=== PATIENT | male | born 1950 | race Hispanic/Latino ===

== ENCOUNTER 2017-09-15 08:47 | Emergency (ER) | payer BC ==
[2017-09-15] MEDS ORDERED: Fentanyl 100 MCG/2 ML VIAL ONE (09:30)
[2017-09-15 09:41] LABS: #Eosinphils 0.2 thou/uL (0.0-0.7); #Lymphocytes 0.6 thou/uL (1.20-3.40); #Monocytes 0.4 thou/uL (0.11-0.59); #Neutrophils 3.7 thou/uL (1.40-6.50); %Basophils 0.8 % (0.0-1.0); %Eosinophils 4.2 % (0.0-10.0); %Lymphocytes 12.3 % (21.0-51.0); %Monocytes 7.1 % (0.0-10.0); %Neutrophils 75.6 % (42.0-75.0); Hemoglobin 15.8 g/dL (14.0-18.0); Mean Corpuscular Hemoglobin 33.8 pg (27.0-31.0); Mean Corpuscular Volume 99.3 fl (80.0-94.0); Mean Platelet Volume 8.9 fL (7.4-10.4); Platelet Count 169 thou/uL (130-400); RBC Distribution Width 11.8 % (11.5-14.5); Red Blood Cell (RBC) Count 4.69 mill/uL (4.70-6.10); White Blood Cell (WBC) Count 4.9 thou/uL (4.8-10.8)
--- NOTE | 2017-09-15 10:09 | CT ---
CT ABDOMEN AND PELVIS: 09/15/2017 HISTORY: Bilateral testicular pain. Abdominal pain. COMPARISON: None available. TECHNIQUE: Serial axial CT imaging at 5 mm intervals, from the lung bases through the pubic symphysis, without c ontrast. Coronal reformatted imaging obtained. FINDINGS: Mechanical aortic valve noted. Midline sternotomy wires present. Lack of contrast limits assessment of the viscera, bowel, and vascular structures, and for lymphadeno kelsey. There is a granuloma in the left lower lobe. Calcified lymph nodes are noted in the left hilum. There is no free intraperitoneal air or fluid. There are dystrophic calcifications within the prosta te gland. There are granulomata within the spleen. The liver, gallbladder, pancreas, adrenal glands, and kidneys demonstrate no acute findings. A vague hypodense area in the upper pole of the left kidney, on image 28, measures 6-7 mm, [id number] acterize. Probable punctate, nonobstructing stone noted within the mid pole of the left kidney, on a xial image 39. There is no evidence for obstructive uropathy or ureteral calcification on either side. There are scattered diverticula noted within the descending colon and sigmoid colon, with no evidence for diverticulitis. The appendix is within normal limits. There is no evidence for bowel obstructi on. There is a small sliding type hiatal hernia present. Multilevel lower lumbar spine facet hypert rophic changes are noted. There is multilevel disk space narrowing and degenerative endplate change with osteophyte formation. IMPRESSION: Punctate, nonobstructing stone, mid pole, left kidney. No evidence for obstructive uropathy. POS: [facility]
--- NOTE | 2017-09-15 10:26 | ULT ---
ULTRASOUND TESTICULAR BILATERAL: Date: 09/15/17 HISTORY: Bilateral pain. COMPARISON: None. FINDINGS: Real-time Alan scale with color Doppler and spectral analysis of the testicles performed with a linea r transducer. Right testicle measures 4.1 x 2.5 x 3.1 cm. Left testicle measures 3.9 x 3.0 x 2.8 cm. Both epididymi nuha are normal. There is hypervascularity of both testicles. No abnormal mass. Moderate size left varicocele. IMPRESSION: 1. Moderate bilateral hypervascularity suggestive for orchitis. 2. Moderate left varicocele. POS: [facility]
[2017-09-15 10:57] LABS: Albumin 3.8 g/dL (3.4-4.8)
[2017-09-15 10:58] LABS: Chloride 104 mmol/L (98-107); Potassium 3.7 mmol/L (3.5-5.1); Sodium 135 mmol/L (136-145)
[2017-09-15 10:59] LABS: Calcium 8.8 mg/dL (7.8-10.44)
[2017-09-15 11:00] LABS: Globulin 2.8 g/dL (2.4-3.5); Glucose 103 mg/dL (80-115); Protein, Total 6.6 g/dL (5.8-8.1)
[2017-09-15 11:01] LABS: Anion Gap 11 mmol/L (10-20); Bilirubin, Total 1.5 mg/dL (0.2-1.2); Carbon Dioxide 24 mmol/L (23-31)
[2017-09-15 11:02] LABS: Alkaline Phosphatase 87 U/L (40-150)
[2017-09-15 11:03] LABS: Calc. Creatinine Clearance 0 mL/min (70-130); Estimated GFR-MDRD Greater than 90
[2017-09-15 11:04] LABS: BUN (Urea Nitrogen) 8 mg/dL (8.4-25.7)
[2017-09-15 11:05] LABS: AST (SGOT) 68 U/L (5-34)
[2017-09-15 11:06] LABS: ALT (SGPT) 80 U/L (8-55); Lipase 28 U/L (8-78)
[2017-09-15] MEDS ORDERED: LIDOCAINE 1% IM SCH (12:15)
[2017-09-15] MEDS ORDERED: STERILE WATER SLOW IVP SCH ×2 (12:15→12:30)
[2017-09-15] MEDS ORDERED: cefTRIAXone\\ROCEPHIN 1 GM VIAL IM SCH (12:15)
[2017-09-15] MEDS ORDERED: CEFTRIAXONE ROCEPHIN SLOW IVP SCH ×2 (12:15→12:30)
[2017-09-15] MEDS ORDERED: CEFTRIAXONE ROCEPHIN IM SCH (12:15)
[2017-09-15] MEDS ORDERED: Lidocaine 1% PF 5 ML VIAL FS SCH (12:15)
[2017-09-15 12:35] LABS: Bilirubin Negative (Negative); Blood, Urine Negative (Negative); Clarity CLEAR (Clear); Glucose, Urine (Dipstick) Negative (Negative); Leukocyte Negative (Negative); Nitrite Negative (Negative); Protein, Urine (Dipstick) Negative (Neg-Trace); Specific Gravity, Urine 1.012 (1.002-1.036); Urobilinogen 0.2 mg/dL (0.2-1.0)
[2017-09-15] MEDS ORDERED: Ibuprofen 200 MG TAB ONE (12:52)
[2017-09-15] MEDS ORDERED: Lidocaine 1% PF 5 ML VIAL ONE (12:57)
[2017-09-15] MEDS ORDERED: cefTRIAXone\\ROCEPHIN 250 MG VIAL ONE (12:57)
[2017-09-21 18:22] LABS: Chlamydia by PCR Not Detected (NotDetected); GC by PCR Not Detected (NotDetected)
== END 2017-09-15 13:26 | disposition home or self-care (01) ==
LOC: ERS 08:47
DX: N45.2 Orchitis (principal); Z79.01 Long term (current) use of anticoagulants; Z79.899 Other long term (current) drug therapy
CPT/HCPCS: 36415; 74176; 76870; 80053; 81003; 83690; 85025; 87491; 87591; 93976; 96374; 96375; A4216; J0696; J2001; J3010

== ENCOUNTER 2019-12-20 09:42 | Observation (INO) | payer BC ==
[~2019-12-20 09:42] MED LIST: Iopamidol-370 76% 500 ML 1 ML ONE
--- NOTE | 2019-12-20 10:00 | CT ---
EXAM: CT brain without contrast HISTORY: Right facial drooping and blurry vision in the right eye COMPARISON: None TECHNIQUE: Multiple contiguous axial images were obtained and a CT of the brain without contrast. FINDINGS: The brain is normal in morphology and attenuation without focal lesions or confluent areas of infarction. There is no evidence of hydrocephalus, intracranial hemorrhage, or extra-axial fluid collection. The calvarium and overlying soft tissues are unremarkable. The visualized paranasal sinuses and masto id air cells are well aerated. IMPRESSION: No evidence of acute intracranial abnormality Dr. Dejesus notified of findings at 9:57 AM on 12/20/2019
[2019-12-20 10:03] LABS: #Eosinphils 0.2 thou/uL (0.0-0.7); #Lymphocytes 1.3 thou/uL (1.20-3.40); #Monocytes 0.4 thou/uL (0.11-0.59); #Neutrophils 2.9 thou/uL (1.40-6.50); %Basophils 0.9 % (0.0-1.0); %Eosinophils 3.9 % (0.0-10.0); %Lymphocytes 25.9 % (21.0-51.0); %Neutrophils 60.3 % (42.0-75.0); Hemoglobin 16.7 g/dL (14.0-18.0); Mean Corpuscular HGB CONC 34.6 g/dL (32.0-36.0); Mean Corpuscular Hemoglobin 33.6 pg (27.0-31.0); Mean Corpuscular Volume 97.2 fL (78.0-98.0); Platelet Count 215 thou/uL (130-400); RBC Distribution Width 11.3 % (11.5-14.5); Red Blood Cell (RBC) Count 4.97 mill/uL (4.70-6.10); White Blood Cell (WBC) Count 4.9 thou/uL (4.8-10.8)
[2019-12-20 10:12] LABS: INR-International Normal Ratio 2.4; PTT 38.3 sec (22.9-36.1); Prothrombin Time 25.9 sec (12.0-14.7)
--- NOTE | 2019-12-20 10:23 | CT ---
EXAM: CT ANGIOGRAM OF THE HEAD AND NECK INDICATION: Last seen normal yesterday at 1400 hours. Blurred vision in the right eye. Right-sided weakness. Faci al droop. COMPARISON: None. TECHNIQUE: CT angiogram of the head and neck are performed in the axial plane. Three-dimensional reformatted celina ges are submitted for interpretation. FINDINGS: CTA OF THE HEAD WITH AND WITHOUT CONTRAST: POSTCONTRAST CT OF BRAIN: Pathologic enhancement: No pathologic enhancement the brain. POSTCONTRAST SOFT TISSUE NECK CT: Aerodigestive tract:Aerodigestive tract is patent. No mucosal abnormality. Sinuses: Adequate aeration. Orbits: Bilateral ocular lenses are appropriately located. Both globes are intact. Retrobulbar fat is preserved. Symmetric attenuation the optic nerves and ocular rectus muscles. Salivary glands:Appropriate attenuation Thyroid gland: Hypodensity in the right thyroid lobe, incompletely evaluated measuring 0.8 cm. Lymph nodes: No evidence of lymphadenopathy by size criteria. Paraspinal muscles: Symmetric attenuation of the sternocleidomastoid muscles. Appropriate attenuation of the paraspinal muscles. Cervical spine:Vertebral body height is maintained. No fracture. There are varying degrees of central canal stenosis or significant neural foraminal narrowing due to degenerative change. Limited evaluation by technique. Upper mediastinum and lung apices: Chronic changes in the visualized lung parenchyma. No acute abnorm ality. CTA OF THE NECK WITH CONTRAST: Aorta: Minimal atherosclerosis of the aorta. Right carotid artery: Appropriate enhancement and luminal diameter of the origin of the common caroti d artery, innominate artery, common carotid artery, carotid bifurcation and internal carotid artery. Minimal atherosclerosis of the carotid bifurcation and proximal internal carotid artery. No s ignificant stenosis based upon NASCET criteria. Left carotid: Appropriate enhancement and luminal diameter of the origin of the common carotid artery , common carotid artery, carotid bifurcation and internal carotid artery. Small amount of calcified and noncalcified plaque in the carotid bifurcation and proximal internal carotid artery. No significa nt stenosis based upon NASCET criteria. Subclavian arteries:Mild narrowing involving the origin and proximal subclavian artery due to noncalc ified plaque. Vertebral arteries:Dominant left vertebral artery. No significant stenosis of either cervical vertebr al artery. CTA OF THE BRAIN: Intracranial internal carotid arteries:Minimal atherosclerosis in both cavernous and paraclinoid segm ents. Anterior circulation: Appropriate enhancement and luminal diameter of the A1 and proximal A2 segments . Appropriate enhancement and luminal diameter of the M1 segments and proximal MCA branches. Intracranial vertebral arteries: Patent. Bilateral PICA artery origins have appropriate enhancement a nd luminal diameter. Posterior circulation: Appropriate enhancement and luminal diameter of the basilar artery and bilater al P1 segments. IMPRESSION: 1. No hemodynamically significant stenosis, occlusion or aneurysmal formation. 2. Results study discussed with Dr. Dejesus 12/20/2019 at 10:22 AM. Code CR Transcribed Date/Time: 12/20/2019 10:39 AM
[2019-12-20 10:28] LABS: ALT (SGPT) 22 U/L (8-55); AST (SGOT) 26 U/L (5-34); Albumin 4.2 g/dL (3.4-4.8); Alkaline Phosphatase 98 U/L (40-110); Anion Gap 12 mmol/L (10-20); BUN (Urea Nitrogen) 14 mg/dL (8.4-25.7); Bilirubin, Total 0.8 mg/dL (0.2-1.2); Calc. Creatinine Clearance 0 mL/min (70-130); Calcium 9.2 mg/dL (7.8-10.44); Carbon Dioxide 25 mmol/L (23-31); Chloride 107 mmol/L (98-107); Estimated GFR-MDRD Greater than 90; Globulin 2.9 g/dL (2.4-3.5); Glucose 112 mg/dL (80-115); Potassium 4.2 mmol/L (3.5-5.1); Protein, Total 7.1 g/dL (5.8-8.1); Sodium 140 mmol/L (136-145)
[2019-12-20 10:50] LABS: CKMB 2.1 ng/mL (0-6.6)
[2019-12-20] MEDS ORDERED: Aspirin Chewable 81 MG TAB ONE (11:20)
[2019-12-20] MEDS ORDERED: Senokot S 8.6-50 MG TAB PO PRN (12:04)
[2019-12-20] MEDS ORDERED: Sodium Chloride 0.9% 1,000 ML IV SCH (12:15)
--- NOTE | 2019-12-20 12:50 | MRI ---
Exam: Brain MRI without contrast HISTORY: Evaluate for CVA. Right facial droop. Blurred vision. COMPARISON: None FINDINGS: Calvarial marrow signal intensity: Appropriate T1 signal Gradient echo sequence: No hemorrhage Brain parenchyma: No mass, mass effect or midline shift. Brain volume, age-appropriate. Cortical daigle-white matter differentiation: Preserved Restricted diffusion: Central arterial flow voids are maintained. Absent restricted diffusion White matter signal intensities:Scattered T2, FLAIR white matter hyperintensities due to chronic smal l vessel ischemic changes Sinuses: Adequate aeration of the paranasal sinuses and mastoid air cells. IMPRESSION: 1. Absent restricted diffusion. No acute infarct.
--- NOTE | 2019-12-20 13:34 | PDOC.HHP ---
Hospitalist HPI - History of Present Illness right sided facial droop with some dysarthria History of Present Illness: 69M came to the ED today to have a right sided facial droop and slurred speech evaluation. States it started yesterday around 2pm and has not gotten any better so he thought he should see someone about it. NIH = 3 in the ED for droop and dysarthria. CT and CTA of the brain without acute findings. Has a PMH pertinent for a mechanical heart valve, replaced 9 years ago, and HTN. ED Course: CTA, CT and MRI brain without any evidence of acute findings. Chem panel unremarkable, troponin x1 is in the indeterminate range. INR = 2.4. Will be admitted to stroke unit for further management. Hospitalist ROS - Review of Systems Constitutional: denies: fever, chills, sweats, weakness, malaise, other Eyes: denies: pain, vision change, conjunctivae inflammation, eyelid inflammation, redness, other ENT: reports: other (right side of mouth feels heavy, tingling on the right side of his tongue.) Respiratory: denies: cough, dry, shortness of breath, hemoptysis, SOB with excertion, pleuritic pain, sputum, wheezing, other Cardiovascular: denies: chest pain, palpitations, orthopnea, paroxysmal noc. dyspnea, edema, light headedness, other Gastrointestinal: denies: nausea, vomiting, abdominal pain, diarrhea, constipation, melena, hematochezia, other Genitourinary: denies: dysuria, frequency, incontinence, hematuria, retention, other Musculoskeletal: denies: neck pain, shoulder pain, arm pain, back pain, hand pain, leg pain, foot pain, other Skin: denies: rash, lesions, luis fernando, bruising, other Neurological: reports: change in speech Hospitalist History - Past Medical History Cardiac: reports: HTN, Aortic stenosis, Valve insufficiency Pulmonary: denies: no pertinent history, angina, asthma, bronchitis, CVA/TIA/ stroke, congestive heart failure, COPD, deep vein thrombosis, emphysema, heart attack, high cholesterol, HIV/AIDS, lung disease, pneumonia, previously intubated, pulmonary embolism, Other TRAVEL ACCOMMODATIONS RATER: denies: no pertinent history, Carpal Tunnel Syndrome, CVA, Dementia, Migraine, Peripheral neuropathy, Seizure, TIA, Vertigo, Other Gastrointestinal: denies: no pertinent history, Constipation, Diverticulosis, GERD, GI bleed, Gastritis, Hemorrhoids, Inflam bowel disease, Irritable bowel disease, Peptic ulcer disease, Other Heme/Onc: denies: no pertinent history, Anemia NOS, B12 deficiency, Cancer, Hemochromatosis, Iron deficiency anemia, Sickle cell disease, Sickle cell trait , Other Hepatobiliary: denies: no pertinent history, Cirrhosis, Cholelithiasis, Hep A/B/ C, Other Renal/: denies: no pertinent history, Chronic renal insuff, Acute renal failure, Chronic renal failure, UTI, Benign prostatic enlarg., Hematuria, Other Endocrine: denies: no pertinent history, Diabetes, Hyperthyroidism, Hypothyroidism, Hyperparathyroidism, Osteopenia, Osteoporosis, Other - Past Surgical History Past Surgical History: reports: Other (Aortic valve replaced 8-9 years ago) - Family History Family History: reports: hypertension - Social History Smoking Status: Never smoker Alcohol: reports: Occassional Drugs: reports: none Living Situation: With Family Activity level: independent ambulation - Exam Eye: PERRL ENT: moist mucosa ENT - other findings: right sided facial droop, can raise eyebrows Neck: supple, no JVD Heart: RRR, no rubs Respiratory: CTAB, normal chest expansion Gastrointestinal: soft, non-tender, normal bowel sounds Extremities: no edema Skin: normal turgor Neurological: normal sensation to touch, facial droop, speech deficit Musculoskeletal: normal tone, normal strength Psychiatric: normal affect, A&O x 3 Hospitalist Results - Labs Result Diagrams: 12/20/19 09:54 12/20/19 09:54 Lab results: WBC 4.9 thou/uL (4.8-10.8) 12/20/19 09:54 Hgb 16.7 g/dL (14.0-18.0) 12/20/19 09:54 Hct 48.2 % (42.0-52.0) 12/20/19 09:54 MCV 97.2 fL (78.0-98.0) 12/20/19 09:54 Plt Count 215 thou/uL (130-400) 12/20/19 09:54 Neutrophils % 60.3 % (42.0-75.0) 12/20/19 09:54 Sodium 140 mmol/L (136-145) 12/20/19 09:54 Potassium 4.2 mmol/L (3.5-5.1) 12/20/19 09:54 Chloride 107 mmol/L (98-107) 12/20/19 09:54 Carbon Dioxide 25 mmol/L (23-31) 12/20/19 09:54 BUN 14 mg/dL (8.4-25.7) 12/20/19 09:54 Creatinine 0.84 mg/dL (0.7-1.3) 12/20/19 09:54 Glucose 112 mg/dL (80-115) 12/20/19 09:54 Calcium 9.2 mg/dL (7.8-10.44) 12/20/19 09:54 Total Bilirubin 0.8 mg/dL (0.2-1.2) 12/20/19 09:54 AST 26 U/L (5-34) 12/20/19 09:54 ALT 22 U/L (8-55) 12/20/19 09:54 Alkaline Phosphatase 98 U/L (40-110) 12/20/19 09:54 CK-MB (CK-2) 2.1 ng/mL (0-6.6) 12/20/19 09:54 Troponin I 0.047 ng/mL (< 0.028) H 12/20/19 09:54 Serum Total Protein 7.1 g/dL (5.8-8.1) 12/20/19 09:54 Albumin 4.2 g/dL (3.4-4.8) 12/20/19 09:54 - EKG Interpretation EKG: Sinus bradycardia, bpm 53, 1st degree AV block, no other changes noted Hospitalist H&P A/P - Problem (1) Facial paralysis on right side Code(s): G51.0 - ANDERSEN'S PALSY Status: Acute (2) Dysarthria Code(s): R47.1 - DYSARTHRIA AND ANARTHRIA Status: Acute (3) Heart valve replaced Code(s): Z95.2 - PRESENCE OF PROSTHETIC HEART VALVE Status: Chronic (4) Hypertension Code(s): I10 - ESSENTIAL (PRIMARY) HYPERTENSION Status: Chronic - Plan Plan: #Facial Droop Echo, PT/OT/Speech eval Neurology consult MRI done today Neuro checks q4 ASA, will check lipids #HTN Will monitor and restart home medications #DVT prevention with SCDs, patient is on coumadin PUD prevention with protonix Check labs in AM Case discussed with Dr. Rice who agrees to plan
[2019-12-20 13:47] LABS: Troponin I 0.019 ng/mL (< 0.028)
--- NOTE | 2019-12-20 15:23 | CON ---
NEUROLOGY CONSULTATION DATE OF CONSULTATION: 12/20/2019 REASON FOR CONSULTATION: Right-sided facial droop with dysarthria. HISTORY OF PRESENT ILLNESS: Mr. Nilo Carver is a 69-year-old male with medical history significant for hypertension, aortic stenosis, asthma, and presented to the emergency room with right-sided facial droop and dysarthria which started yesterday around 2 p.m. and has not got better. He also reports some weakness in the right upper extremity. When he came to the emergency room, the NIH stroke scale was 3. CT head was done, which was negative for acute intracranial pathology. CT angiogram was also unremarkable for hemodynamically significant stenosis. MRI of the brain was done, which did not reveal any acute intracranial process. He was admitted for further evaluation. he patient denies any focal paresthesias, nausea, vomiting, headache, chest pain, palpitation, dizziness, vertigo, loss of vision or loss of consciousness associated with the episode. Reported dysarthria. REVIEW OF SYSTEMS: All other systems were reviewed and were negative except pertinent positives and negatives mentioned in the HPI. PAST MEDICAL HISTORY: Significant for hypertension, aortic stenosis, valvular insufficiency. PAST SURGICAL HISTORY: Aortic valve replacement 8 to 9 years ago. FAMILY HISTORY: Significant for hypertension. SOCIAL HISTORY: The patient is , lives with his . Denies smoking, alcohol, illegal drug use. ALLERGIES: Hydrocodone - Physical Exam 130/70 54 16 Eye: PERRL ENT: moist mucosa ENT - other findings: right sided facial droop, can raise eyebrows Neck: supple, no JVD Heart: RRR, no rubs Respiratory: CTAB, normal chest expansion Gastrointestinal: soft, non-tender, normal bowel sounds Extremities: no edema Skin: normal turgor Neurological: Mental status: The patient is alert and oriented to person, place, and time. Speech is slurred. Recent and remote memory intact. Fund of knowledge is appropriate. Cranial nerves 2 through 12 intact except 7, right facial droop. Motor: Muscle tone and bulk are normal. Moving all 4 extremities equally and symmetrically. Sensory intact. Cerebellar: Finger-nose testing intact. Gait deferred due to patient's safety reasons. 12/20/19 09:54 Lab results: WBC 4.9 thou/uL (4.8-10.8) 12/20/19 09:54 Hgb 16.7 g/dL (14.0-18.0) 12/20/19 09:54 Hct 48.2 % (42.0-52.0) 12/20/19 09:54 MCV 97.2 fL (78.0-98.0) 12/20/19 09:54 Plt Count 215 thou/uL (130-400) 12/20/19 09:54 Neutrophils % 60.3 % (42.0-75.0) 12/20/19 09:54 Sodium 140 mmol/L (136-145) 12/20/19 09:54 Potassium 4.2 mmol/L (3.5-5.1) 12/20/19 09:54 Chloride 107 mmol/L (98-107) 12/20/19 09:54 Carbon Dioxide 25 mmol/L (23-31) 12/20/19 09:54 BUN 14 mg/dL (8.4-25.7) 12/20/19 09:54 Creatinine 0.84 mg/dL (0.7-1.3) 12/20/19 09:54 Glucose 112 mg/dL (80-115) 12/20/19 09:54 Calcium 9.2 mg/dL (7.8-10.44) 12/20/19 09:54 Total Bilirubin 0.8 mg/dL (0.2-1.2) 12/20/19 09:54 AST 26 U/L (5-34) 12/20/19 09:54 ALT 22 U/L (8-55) 12/20/19 09:54 Alkaline Phosphatase 98 U/L (40-110) 12/20/19 09:54 CK-MB (CK-2) 2.1 ng/mL (0-6.6) 12/20/19 09:54 Troponin I 0.047 ng/mL (< 0.028) H 12/20/19 09:54 Serum Total Protein 7.1 g/dL (5.8-8.1) 12/20/19 09:54 Albumin 4.2 g/dL (3.4-4.8) 12/20/19 09:54 - EKG Interpretation EKG: Sinus bradycardia, bpm 53, 1st degree AV block, no other changes noted DATA REVIEWED: I reviewed the labs which were essentially unremarkable. EKG showed sinus bradycardia with heart rate of 53 and first-degree heart block. Head CT did not reveal any acute intracranial pathology. MRI brain without any evidence of acute findings. Chem panel unremarkable ASSESSMENT AND PLAN: Mr. Nilo Carver is admitted for evaluation of acute onset right facial droop with slurred speech. He does report some mild weakness of the right upper and lower extremities but not much evident on exam.. MRI of the brain reviewed which was negative for acute intracranial process. CT angiogram did not reveal hemodynamically significant stenosis. Concern TIA versus facial palsy . Permissive blood pressure control at this time. Telemetry. Consider increasing aspirin dose to 324 mg daily. Check a fasting lipid panel. Continue aspirin and statin for secondary stroke prevention. The patient is on Coumadin for prosthetic heart valve. PT/OT/Speech. Continue medical management per primary team. We will continue to follow. Thank you for the consult. Job ID: [id number] MTDD
[2019-12-20 15:37] VITALS: BMI 27.7
[2019-12-20 17:55] LABS: Troponin I 0.011 ng/mL (< 0.028)
[2019-12-20] MEDS: Carvedilol 6.25 MG TAB PO SCH (17:55)
[2019-12-20] MEDS ORDERED: Warfarin Sodium 5 MG TAB PO SCH (18:15)
[2019-12-20] MEDS ORDERED: Lisinopril 10 MG TAB PO SCH (21:00)
[2019-12-20] MEDS ORDERED: Carvedilol 6.25 MG TAB PO SCH (21:00)
[2019-12-20] MEDS: Famotidine 20 MG TAB PO SCH (21:09)
[2019-12-20] MEDS: Lisinopril 5 MG TAB PO SCH (21:09)
[2019-12-20] MEDS: Acetaminophen 325 MG TAB PO PRN (23:37)
[2019-12-21 05:23] LABS: #Basophils 0.1 thou/uL (0.0-0.2); #Eosinphils 0.2 thou/uL (0.0-0.7); #Lymphocytes 1.3 thou/uL (1.20-3.40); #Monocytes 0.4 thou/uL (0.11-0.59); #Neutrophils 2.2 thou/uL (1.40-6.50); %Basophils 1.8 % (0.0-1.0); %Eosinophils 5.2 % (0.0-10.0); %Lymphocytes 30.2 % (21.0-51.0); %Neutrophils 52.8 % (42.0-75.0); Hemoglobin 15.3 g/dL (14.0-18.0); Mean Corpuscular HGB CONC 35.4 g/dL (32.0-36.0); Mean Corpuscular Hemoglobin 34.3 pg (27.0-31.0); Mean Corpuscular Volume 96.8 fL (78.0-98.0); Mean Platelet Volume 9.3 fL (7.4-10.4); Platelet Count 192 thou/uL (130-400); RBC Distribution Width 11.3 % (11.5-14.5); Red Blood Cell (RBC) Count 4.47 mill/uL (4.70-6.10); White Blood Cell (WBC) Count 4.2 thou/uL (4.8-10.8)
[2019-12-21 05:29] LABS: INR-International Normal Ratio 2.5; PTT 39.3 sec (22.9-36.1); Prothrombin Time 26.5 sec (12.0-14.7)
[2019-12-21 05:41] LABS: Anion Gap 11 mmol/L (10-20); BUN (Urea Nitrogen) 14 mg/dL (8.4-25.7); Calc. Creatinine Clearance 100 mL/min (70-130); Calcium 8.5 mg/dL (7.8-10.44); Carbon Dioxide 25 mmol/L (23-31); Cardiac Risk 5.1 (Less than 4.5); Chloride 108 mmol/L (98-107); Cholesterol 205 mg/dl (< 200 Desired); Estimated GFR-MDRD Greater than 90; Glucose 97 mg/dL (80-115); HDL Cholesterol 40 mg/dL (>60 Neg Risk); LDL Cholesterol, Calculated 119 mg/dL; Sodium 140 mmol/L (136-145); Triglycerides 232 mg/dL (Less than 150)
[2019-12-21] MEDS: Carvedilol 6.25 MG TAB PO SCH ×2 (07:48→17:29)
[2019-12-21] MEDS: Lisinopril 5 MG TAB PO SCH (08:28)
[2019-12-21] MEDS: Acetaminophen 325 MG TAB PO PRN (08:36)
[2019-12-21] MEDS ORDERED: Aspirin 325 mg Enteric Coated Tablet PO SCH (09:00)
[2019-12-21] MEDS ORDERED: Prevnar 13-Val Conj/PF 0.5 ML SYRINGE IM ONE (09:00)
[2019-12-21] MEDS ORDERED: Aspirin 81 mg Enteric Coated Tablet PO SCH (09:45)
--- NOTE | 2019-12-21 11:16 | PDOC.HOSPP ---
- Subjective Encounter Date: 12/21/19 Subjective: NEUROLOGY PROGRESS NOTE Patient awake , alert and follows commands appropriately. He continues to have right facial droop. MRI brain negative. - Objective Vital Signs & Weight: Vital Signs (12 hours) Temp Pulse Resp BP Pulse Ox 12/21/19 08:00 98.5 F 47 L 16 139/74 97 12/21/19 04:00 97.5 F L 47 L 14 141/67 H 98 12/21/19 00:00 97.9 F 48 L 16 170/79 H 95 Weight Weight 177 lb I&O: 12/20/19 12/21/19 12/22/19 06:59 06:59 06:59 Intake Total 1789 240 Balance 1789 240 Result Diagrams: 12/21/19 04:29 12/21/19 04:29 Radiology Reviewed by me: Yes EKG Reviewed by me: Yes Hospitalist ROS - Review of Systems Constitutional: denies: fever, chills, sweats, weakness, malaise, other Eyes: denies: pain, vision change, conjunctivae inflammation, eyelid inflammation, redness, other ENT: denies: ear pain, ear discharge, nose pain, nose discharge, nose congestion , mouth pain, mouth swelling, throat pain, throat swelling, other Respiratory: denies: cough, dry, shortness of breath, hemoptysis, SOB with excertion, pleuritic pain, sputum, wheezing, other Cardiovascular: denies: chest pain, palpitations, orthopnea, paroxysmal noc. dyspnea, edema, light headedness, other Gastrointestinal: denies: nausea, vomiting, abdominal pain, diarrhea, constipation, melena, hematochezia, other Genitourinary: denies: dysuria, frequency, incontinence, hematuria, retention, other Musculoskeletal: denies: neck pain, shoulder pain, arm pain, back pain, hand pain, leg pain, foot pain, other Skin: denies: rash, lesions, luis fernando, bruising, other Neurological: reports: weakness. denies: numbness, incoordination, change in speech, confusion, seizures, other Other: right facial weakness - Medication Medications: Active Medications Generic Name Dose Route Start Last Admin Trade Name Freq PRN Reason Stop Dose Admin Acetaminophen 650 mg 12/20/19 12:04 12/21/19 08:36 Tylenol PO 650 mg Q4H PRN Administration Headache/Fever/Mild Pain (1-3) Carvedilol 6.25 mg 12/20/19 17:00 12/21/19 07:48 Coreg PO Not Given BID-WM HARPER Famotidine 20 mg 12/20/19 21:00 12/20/19 21:09 Pepcid PO 20 mg BID HARPER Administration Lisinopril 5 mg 12/20/19 21:00 12/21/19 08:28 Zestril PO 5 mg BID HARPER Administration Sodium Chloride 10 ml 12/20/19 12:04 12/21/19 08:28 Flush - Normal Saline IVF 10 ml PRN PRN Administration Saline Flush - Exam General Appearance: awake alert Eye: PERRL ENT: normocephalic atraumatic Neck: supple Heart: RRR Respiratory: CTAB Gastrointestinal: soft Extremities: no cyanosis Skin: normal turgor Neurological: normal sensation to touch, no weakness, no focal deficits, no new deficit, facial droop Neurological - other findings: right facial droop and right facial weakness Musculoskeletal: normal tone, normal strength, no muscle wasting Psychiatric: normal affect, normal behavior, A&O x 3, oriented to person, oriented to place, oriented to time Hosp A/P (1) Dysarthria Code(s): R47.1 - DYSARTHRIA AND ANARTHRIA Status: Acute (2) Facial paralysis on right side Code(s): G51.0 - ANDERSEN'S PALSY Status: Acute - Plan speech therapy 69 year old with right facial droop and right facial weakness. 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 MRI brain negative for acute intracranial process. Speech eval for dysarthria. Continue home medications. Continue medical management per primary team. Plan discussed in detail with the patient and the floor team during the MDR rounds.
[2019-12-21] MEDS: Famotidine 20 MG TAB PO SCH (11:21)
--- NOTE | 2019-12-21 13:16 | CT ---
EXAM: CT ANGIOGRAM OF THE HEAD AND NECK INDICATION: Last seen normal yesterday at 1400 hours. Blurred vision in the right eye. Right-sided weakness. Faci al droop. COMPARISON: None. TECHNIQUE: CT angiogram of the head and neck are performed in the axial plane. Three-dimensional reformatted ceilna ges are submitted for interpretation. FINDINGS: CTA OF THE HEAD WITH AND WITHOUT CONTRAST: POSTCONTRAST CT OF BRAIN: Pathologic enhancement: No pathologic enhancement the brain. POSTCONTRAST SOFT TISSUE NECK CT: Aerodigestive tract:Aerodigestive tract is patent. No mucosal abnormality. Sinuses: Adequate aeration. Orbits: Bilateral ocular lenses are appropriately located. Both globes are intact. Retrobulbar fat is preserved. Symmetric attenuation the optic nerves and ocular rectus muscles. Salivary glands:Appropriate attenuation Thyroid gland: Hypodensity in the right thyroid lobe, incompletely evaluated measuring 0.8 cm. Lymph nodes: No evidence of lymphadenopathy by size criteria. Paraspinal muscles: Symmetric attenuation of the sternocleidomastoid muscles. Appropriate attenuation of the paraspinal muscles. Cervical spine:Vertebral body height is maintained. No fracture. There are varying degrees of central canal stenosis or significant neural foraminal narrowing due to degenerative change. Limited evaluation by technique. Upper mediastinum and lung apices: Chronic changes in the visualized lung parenchyma. No acute abnorm ality. CTA OF THE NECK WITH CONTRAST: Aorta: Minimal atherosclerosis of the aorta. Right carotid artery: Appropriate enhancement and luminal diameter of the origin of the common caroti d artery, innominate artery, common carotid artery, carotid bifurcation and internal carotid artery. Minimal atherosclerosis of the carotid bifurcation and proximal internal carotid artery. No s ignificant stenosis based upon NASCET criteria. Left carotid: Appropriate enhancement and luminal diameter of the origin of the common carotid artery , common carotid artery, carotid bifurcation and internal carotid artery. Small amount of calcified and noncalcified plaque in the carotid bifurcation and proximal internal carotid artery. No significa nt stenosis based upon NASCET criteria. Subclavian arteries:Mild narrowing involving the origin and proximal subclavian artery due to noncalc ified plaque. Vertebral arteries:Dominant left vertebral artery. No significant stenosis of either cervical vertebr al artery. CTA OF THE BRAIN: Intracranial internal carotid arteries:Minimal atherosclerosis in both cavernous and paraclinoid segm ents. Anterior circulation: Appropriate enhancement and luminal diameter of the A1 and proximal A2 segments . Appropriate enhancement and luminal diameter of the M1 segments and proximal MCA branches. Intracranial vertebral arteries: Patent. Bilateral PICA artery origins have appropriate enhancement a nd luminal diameter. Posterior circulation: Appropriate enhancement and luminal diameter of the basilar artery and bilater al P1 segments. IMPRESSION: 1. No hemodynamically significant stenosis, occlusion or aneurysmal formation. 2. Results study discussed with Dr. Dejesus 12/20/2019 at 10:22 AM. Code CR Transcribed Date/Time: 12/21/2019 1:16 PM
[2019-12-21 16:05] VITALS: BP 147/71; TEMP 97.5
[2019-12-21] MEDS ORDERED: Warfarin Sodium 5 MG TAB PO SCH (17:00)
[2019-12-21] MEDS ORDERED: predniSONE 20 MG TAB PO SCH (17:30)
[2019-12-21] MEDS ORDERED: valACYclovir 500 MG TAB PO SCH (17:30)
--- NOTE | 2019-12-21 19:37 | DIS ---
DATE OF ADMISSION: 12/20/2019 DATE OF DISCHARGE: 12/21/2019 DISCHARGE DISPOSITION: Home. FOLLOWUP: 1. Follow up with Dr. Hollis Cortez at [facility] in 1 week. 2. Follow up with Neurology, Dr. Frausto in 2 weeks. ALLERGIES: THE PATIENT IS ALLERGIC TO HYDROCODONE. DISCHARGE MEDICATIONS: 1. Valtrex 1 g 3 times daily for 1 week. 2. Prednisone 60 mg daily for 1 week. All other home medications were left unchanged. The patient was seen and examined on the day of discharge. Denies any new complaints. No new focal deficit. BRIEF HOSPITAL COURSE: The patient is a 69-year-old male with hypertension and mechanical aortic valve on anticoagulation, presented to the hospital with right-sided facial droop along with dysarthria. Please refer to the history and physical for further details. The patient was admitted to the hospital with a diagnosis of suspected CVA. Initial CT scan of the brain was negative for acute CVA. MRI of the brain was negative as well. Echocardiogram showed left ventricular ejection fraction 55% to 60% with probable mild diastolic dysfunction and trace tricuspid regurgitation. Left atrium was [id number] dilated. The patient was evaluated by Neurology. 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 He has been started on Valtrex along with prednisone. Side effects of the medications were discussed with the patient. He will benefit from repeat electrolyte check after 1 week. His INR on the day of discharge is 2.5. His fasting lipid profile showed total cholesterol of 205 with triglyceride 232, LDL of 119, and HDL of 40. He was advised to discuss with his primary care regarding initiation of statins. He appears stable for discharge. FINAL DIAGNOSES: 1. Ken's palsy. Acute cerebrovascular accident ruled out. 2. Dysarthria secondary to above. 3. Hypertension. 4. Chronic anticoagulation for mechanical aortic valve. 5. Gastroesophageal reflux disease. 6. The patient understands the above plan of care. Job ID: [id number]
[2019-12-22] MEDS ORDERED: Aspirin 81 mg Enteric Coated Tablet PO SCH (09:00)
== END 2019-12-21 19:00 | disposition home or self-care (01) ==
LOC: ERS 09:42 → ERHOLD 12:14 → 2SE 16:38
PROVIDERS: ADMIT Internal Medicine; ATTEND Internal Medicine
DX: G51.0 Bell's palsy (principal); I10 Essential (primary) hypertension; Q23.0 Congenital stenosis of aortic valve; J45.909 Unspecified asthma, uncomplicated; K21.9 Gastro-esophageal reflux disease without esophagitis; Z79.01 Long term (current) use of anticoagulants; Z79.899 Other long term (current) drug therapy; Z88.5 Allergy status to narcotic agent; Z95.2 Presence of prosthetic heart valve
CPT/HCPCS: 36415; 36416; 70450; 70496; 70498; 70551; 80048; 80053; 80061; 82553; 84443; 84484; 85025; 85610; 85730; 90471; 90670; 93005; 93306; 94760; 96360; 96361; G0009; G0378; J7512; Q9967

== ENCOUNTER 2020-12-20 12:36 | Outpatient (CLI) | payer BC ==
[~2020-12-20 12:36] MED LIST changes: -Iopamidol-370 76% 500 ML 1 ML ONE; +Magnevist 469MG/ML 20 ML VIAL ONE
== END 2020-12-20 12:37 | disposition home or self-care (01) ==
LOC: BICMRI 12:36
PROVIDERS: ATTEND Otolaryngology Plastic Surgery within the Head & Neck
DX: H90.5 Unspecified sensorineural hearing loss (principal); I73.9 Peripheral vascular disease, unspecified
CPT/HCPCS: 70553; 82565; A9579

== ENCOUNTER 2021-08-07 01:12 | Emergency (ER) | payer BC, MEDICARE, SELFPAY ==
[2021-08-07 02:43] LABS: #Eosinphils 0.2 thou/uL (0.0-0.7); #Lymphocytes 1.3 thou/uL (1.20-3.40); #Monocytes 0.6 thou/uL (0.11-0.59); #Neutrophils 6.5 thou/uL (1.40-6.50); %Basophils 0.5 % (0.0-1.0); %Eosinophils 2.7 % (0.0-10.0); %Lymphocytes 14.9 % (21.0-51.0); %Monocytes 7.4 % (0.0-10.0); %Neutrophils 74.5 % (42.0-75.0); Hemoglobin 13.5 g/dL (14.0-18.0); Mean Corpuscular HGB CONC 34.8 g/dL (32.0-36.0); Mean Corpuscular Hemoglobin 34.9 pg (27.0-31.0); Mean Platelet Volume 7.3 fL (7.4-10.4); Platelet Count 349 thou/uL (130-400); RBC Distribution Width 14.2 % (11.5-14.5); Red Blood Cell (RBC) Count 3.86 mill/uL (4.70-6.10); White Blood Cell (WBC) Count 8.7 thou/uL (4.8-10.8)
[2021-08-07] MEDS ORDERED: Famotidine 20 MG TAB ONE (02:58)
[2021-08-07 03:01] LABS: ALT (SGPT) 35 U/L (8-55); AST (SGOT) 38 U/L (5-34); Albumin 3.9 g/dL (3.4-4.8); Alkaline Phosphatase 91 U/L (40-110); Anion Gap 14 mmol/L (10-20); BUN (Urea Nitrogen) 11 mg/dL (8.4-25.7); Calc. Creatinine Clearance 0 mL/min (70-130); Calcium 8.9 mg/dL (7.8-10.44); Carbon Dioxide 21 mmol/L (23-31); Chloride 105 mmol/L (98-107); Globulin 3.7 g/dL (2.4-3.5); Glucose 134 mg/dL (80-115); Lipase 49 U/L (8-78); Potassium 3.8 mmol/L (3.5-5.1); Protein, Total 7.6 g/dL (5.8-8.1); Sodium 136 mmol/L (136-145)
[2021-08-07] MEDS ORDERED: Lidocaine Viscous Sol 2% 15 ml UD Cup ONE (03:19)
[2021-08-07] MEDS ORDERED: Mag-Al 1200 mg/1200 mg/30 ML UDCUP ONE (03:19)
== END 2021-08-07 05:45 | disposition home or self-care (01) ==
LOC: ERS 01:12
DX: R07.9 Chest pain, unspecified (principal); R10.13 Epigastric pain; Z79.899 Other long term (current) drug therapy
CPT/HCPCS: 36415; 71045; 80053; 83690; 84484; 85025; 93005

== ENCOUNTER 2024-05-26 12:25 | Outpatient (CLI) | payer MEDICARE | END 2024-05-26 12:26 | disposition home or self-care (01) | LOC: CT 12:25 | PROVIDERS: ATTEND Orthopaedic Surgery | DX: M17.12 Unilateral primary osteoarthritis, left knee (principal) ==

== ENCOUNTER 2024-06-07 08:37 | Observation (INO) | payer MEDICARE ==
[2024-06-04 13:29] LABS: #Basophils 0.03 10x3/uL (0.0-0.2); %Basophils 0.5 % (0.0-1.0); %Eosinophils 2.9 % (0.0-10.0); %Monocytes 9.1 % (0.0-10.0); %Neutrophils 67.8 % (42.0-75.0); Mean Corpuscular HGB CONC 34.8 g/dL (32.0-36.0); Mean Corpuscular Hemoglobin 32.6 pg (27.0-31.0); Mean Corpuscular Volume 93.7 fL (78.0-98.0); Mean Platelet Volume 10.7 fL (7.4-10.4); Platelet Count 264 10x3/uL (130-400); Red Blood Cell (RBC) Count 4.91 mill/uL (4.70-6.10)
[2024-06-04 13:44] LABS: Anion Gap 15 mmol/L (10-20); BUN (Urea Nitrogen) 15 mg/dL (8.4-25.7); Calc. Creatinine Clearance 0 mL/min (70-130); Calcium 9.1 mg/dL (7.8-10.44); Carbon Dioxide 20 mmol/L (23-31); Chloride 108 mmol/L (98-107); Estimated GFR 74; Glucose 99 mg/dL (83-110); Sodium 139 mmol/L (136-145)
[2024-06-04 14:38] LABS: Bilirubin Negative (Negative); Blood, Urine Negative (Negative); Clarity Clear (Clear); Glucose, Urine (Dipstick) Normal (Negative); Ketone, Urine Trace mg/dL (Negative); Leukocyte 25 Leu/uL (Negative); Nitrite Negative (Negative); Protein, Urine (Dipstick) 10 mg/dL (Neg-Trace); Specific Gravity, Urine 1.025 (1.002-1.036); Urobilinogen Normal mg/dL (Less than 2); pH, Urine 5.5 (5.0-9.0)
[2024-06-07] MEDS ORDERED: fentaNYL 50 mcg/mL 1 mL Vial ONE ×3 (09:28→13:36)
[2024-06-07] MEDS ORDERED: Midazolam HCl 2 mg/2 ml Vial ONE (09:28)
[2024-06-07] MEDS ORDERED: Bupivacaine PF 0.5% 30 ML VIAL ONE (09:29)
[2024-06-07] MEDS ORDERED: Bupivacaine 0.25% HCL 30 ML VIAL ONE (09:30)
[2024-06-07] MEDS ORDERED: CEFAZOLIN 2 GM VIAL ONE (09:32)
[2024-06-07] MEDS ORDERED: Vancomycin (BATCH) 1.5 GM/300 ML BAG ONE (09:37)
[2024-06-07] MEDS ORDERED: Sodium Chloride 0.9% 100 ML ONE (09:38)
[2024-06-07] MEDS ORDERED: Tranexamic Acid 1,000 MG/10 ML VIAL ONE ×2 (09:38→13:18)
[2024-06-07] MEDS ORDERED: Lidocaine 2% PF 5 ML VIAL ONE (09:45)
[2024-06-07] MEDS ORDERED: PROPOFOL 20 ML ONE (09:45)
[2024-06-07] MEDS ORDERED: fentaNYL PF 100 MCG/2 ML SYRINGE ONE ×2 (09:45→12:40)
[2024-06-07 10:33] LABS: INR-International Normal Ratio 1.2; PTT 29.3 sec (22.9-36.1); Prothrombin Time 14.7 sec (12.0-14.7)
[2024-06-07] MEDS ORDERED: Bupivacaine HCl 0.5%/Epinephrine 1:200,000/PF 30 ml Vial ONE (10:40)
[2024-06-07] MEDS ORDERED: Promethazine HCl 25 MG/ML VIAL IM PRN ×3 (11:15→13:11)
[2024-06-07] MEDS ORDERED: traMADol HCl 50 MG TAB PO PRN (11:15)
[2024-06-07] MEDS ORDERED: fentaNYL 50 mcg/mL 1 mL Vial SLOW IVP PRN (11:15)
[2024-06-07] MEDS ORDERED: Ondansetron PF 4 MG/2 ML Vial IVP PRN ×2 (11:15→13:11)
[2024-06-07] MEDS ORDERED: Zolpidem Tartrate 5 MG TAB PO PRN ×2 (11:15→13:11)
[2024-06-07] MEDS ORDERED: Ropivacaine 0.2% 550 ML 550 ML NERVE BLCK SCH (11:15)
[2024-06-07] MEDS ORDERED: Dexamethasone 20 MG/5 ML VIAL ONE (11:17)
[2024-06-07] MEDS ORDERED: Ondansetron PF 4 MG/2 ML Vial ONE (11:17)
[2024-06-07] MEDS ORDERED: ePHEDrine Sulfate 50 MG/10 ML VIAL ONE (11:28)
[2024-06-07] MEDS ORDERED: PHENYLEPHRINE-NS 100 MCG/ML 10 ML SYRINGE ONE (11:31)
[2024-06-07] MEDS ORDERED: Ondansetron HCl/PF 4 MG/2 ML Vial IVP PRN ×2 (12:37→13:15)
[2024-06-07] MEDS ORDERED: Acetaminophen 325 MG TAB PO PRN (13:11)
[2024-06-07] MEDS ORDERED: diphenhydrAMINE 25 MG CAP PO PRN (13:11)
[2024-06-07] MEDS ORDERED: HYDROcodone/Acetaminophen 10/325 mg Tablet PO PRN ×2 (13:11)
[2024-06-07] MEDS ORDERED: Tranexamic Acid 1,000 MG in Sodium Chloride 0.9% 100 ML IVPB SCH (13:15)
[2024-06-07] MEDS ORDERED: HYDROmorphone 0.5 MG/0.5 ML SYRINGE ONE (13:37)
[2024-06-07 16:59] VITALS: BMI 29.8
[2024-06-07] MEDS: CEFAZOLIN 2 GM in Sodium Chloride 0.9% 100 ML IVPB SCH (18:38)
[2024-06-07] MEDS: Ketorolac Tromethamine 30 MG (1 mL) VIAL IVP SCH (18:39)
[2024-06-07] MEDS: Sodium Chloride 0.9% 1,000 ML IV SCH (19:08)
[2024-06-07] MEDS: Vancomycin (BATCH) 1.5 GM in Premix 1 BAG IVPB SCH (21:29)
[2024-06-07] MEDS: Ferrous Gluconate 324 MG TAB PO SCH (21:29)
[2024-06-07] MEDS: Aspirin 81 mg Enteric Coated Tablet PO SCH (21:29)
[2024-06-07] MEDS: Senokot S 8.6-50 MG TAB PO SCH (21:29)
[2024-06-08 05:38] LABS: Hematocrit 36.1 % (42.0-52.0); Hemoglobin 12.6 g/dL (14.0-18.0); Mean Corpuscular HGB CONC 34.9 g/dL (32.0-36.0); Mean Corpuscular Hemoglobin 32.8 pg (27.0-31.0); Mean Platelet Volume 10.3 fL (7.4-10.4); Platelet Count 204 10x3/uL (130-400); RBC Distribution Width 11.9 % (11.5-14.5); Red Blood Cell (RBC) Count 3.84 mill/uL (4.70-6.10)
[2024-06-08 08:19] VITALS: BP 144/70; TEMP 97.3
[2024-06-08] MEDS: Multivitamin W/ Minerals 1 TAB PO SCH (09:10)
[2024-06-08] MEDS: traMADol HCl 50 MG TAB PO PRN (09:11)
[2024-06-08] MEDS ORDERED: Warfarin Sodium 5 MG TAB PO SCH (17:00)
[2024-06-09] MEDS ORDERED: FLU (Fluad Triv) TS24-25 (65UP)/MF59C/PF 45 MCG/0.5 ML Syringe IM ONE (09:00)
== END 2024-06-08 12:16 | disposition home or self-care (01) ==
LOC: SDC 08:37 → SURG B 14:48 → SDC 15:26 → SURG B 06-08 12:16 → SDC 06-08 12:16
PROVIDERS: ADMIT Orthopaedic Surgery; ATTEND Orthopaedic Surgery
PROC: 0SRD0JZ Replacement of Left Knee Joint with Synthetic Substitute, Open Approach (ICD-10-PCS; principal; 2024-06-07)
PROC: 3E0T3BZ Introduction of Anesthetic Agent into Peripheral Nerves and Plexi, Percutaneous Approach (ICD-10-PCS; 2024-06-07)
DX: M17.12 Unilateral primary osteoarthritis, left knee (principal); Z96.651 Presence of right artificial knee joint; Z88.5 Allergy status to narcotic agent; Z79.01 Long term (current) use of anticoagulants; Z79.899 Other long term (current) drug therapy
CPT/HCPCS: 0055T; 27447; 64448; 36415; 80048; 81003; 85025; 85027; 85610; 85730; 86850; 86900; 86901; 87081; A4306; C1713; C1776; C1889; J0665; J1100; J1171; J1885; J2250; J2405; J2704; J2795; J3010; J3370

== ENCOUNTER 2024-06-08 16:49 | Emergency (ER) | payer MEDICARE | END 2024-06-08 20:49 | disposition home or self-care (01) | LOC: ERS 16:49 | DX: T84.093A Other mechanical complication of internal left knee prosthesis, initial encounter (principal) | CPT/HCPCS: 99282 ==